=== PATIENT | female | born 1995 | race Asian ===

== ENCOUNTER 2019-10-30 15:41 | Emergency (ER) | payer OTHER ==
[~2019-10-30] VITALS: Ht 149.9 cm; Wt 61.4 kg
[2019-10-30] MEDS ORDERED: SING10TA32 PO (15:47)
[2019-10-30] MEDS ORDERED: ALBU8.5H IH (15:47)
[2019-10-30] MEDS ORDERED: ZYRTTAB8 PO (15:47)
[2019-10-30] MEDS ORDERED: PREN29TA4 PO (15:47)
[2019-10-30 16:40] LABS: BASO % 0.3 % (0.0-1.0); EOS # 0.3 10^3/uL (0.0-0.5); EOS % 2.5 % (0.0-3.0); HEMATOCRIT 42.5 % (36.0-47.0); HEMOGLOBIN 14.1 g/dl (12.0-15.5); LYMPH # 2.6 10^3/uL (1.5-5.0); LYMPH % 23.4 % (24.0-44.0); MEAN CORPUSCULAR HEMOGLOBIN 29.9 pg (27.0-33.0); MEAN CORPUSCULAR HGB CONC 33.2 g/dl (32.0-36.5); MONO # 0.8 10^3/uL (0.0-0.8); MONO % 6.7 % (0.0-5.0); NEUTROPHILS # 7.6 10^3/uL (1.5-8.5); NEUTROPHILS % 66.8 % (36.0-66.0); PLATELET COUNT, AUTOMATED 272 10^3/uL (150-450); RED BLOOD COUNT 4.72 10^6/uL (4.00-5.40); WHITE BLOOD COUNT 11.3 10^3/uL (4.0-10.0)
[2019-10-30 17:28] LABS: ALBUMIN 3.8 GM/DL (3.2-5.2); ALT/SGPT 19 U/L (12-78); BILIRUBIN,DIRECT 0.2 MG/DL (0.0-0.2); BILIRUBIN,TOTAL 0.4 MG/DL (0.2-1.0); BLOOD UREA NITROGEN 7 MG/DL (7-18); CALCIUM LEVEL 9.1 MG/DL (8.5-10.1); CARBON DIOXIDE LEVEL 25 MEQ/L (21-32); CHLORIDE LEVEL 104 MEQ/L (98-107); CREATININE FOR GFR 0.58 MG/DL (0.55-1.30); GLOMERULAR FILTRATION RATE > 60.0 (>60); GLUCOSE, FASTING 85 MG/DL (70-100); HCG, SERUM QUANTITATIVE 47484 MIU/ML; LIPASE 137 U/L (73-393); POTASSIUM SERUM 4.1 MEQ/L (3.5-5.1); SODIUM LEVEL 137 MEQ/L (136-145); TOTAL PROTEIN 7.7 GM/DL (6.4-8.2)
[2019-10-30] MEDS ORDERED: ONDANSETRON 4MG/2ML VIAL (J2405) IV ONE (18:15)
[2019-10-30] MEDS ORDERED: NS 1,000 ML IV ONE (18:15)
[2019-10-30 19:29] LABS: INFLUENZA A AMPLIFICATION NEGATIVE (NEGATIVE); INFLUENZA B AMPLIFICATION NEGATIVE (NEGATIVE)
[2019-10-30] MEDS ORDERED: METOCLOPRAMIDE INJ 10MG/2ML VIAL (J2765) IV ONE (20:30)
[2019-10-30] MEDS ORDERED: ONDA4TAB6 PO ×2 (21:19→21:34)
[2019-10-30 21:24] VITALS: BP 122/72
== END 2019-10-30 21:36 | disposition home or self-care (01) ==
LOC: M ED 15:41
DX: O21.9 Vomiting of pregnancy, unspecified (principal); Z3A.01 Less than 8 weeks gestation of pregnancy; Z79.51 Long term (current) use of inhaled steroids; Z79.899 Other long term (current) drug therapy
CPT/HCPCS: 80048; 80076; 81001; 83690; 84702; 85025; 87086; 87502; 96361; 96374; 99284; J2405

== ENCOUNTER 2020-02-14 03:25 | Outpatient (CLI) | payer OTHER ==
[2020-02-14] VITALS (8 sets, daily range): BP systolic 97–110; BP diastolic 57–71
[~2020-02-14] VITALS: Ht 149.9 cm; Wt 65.2 kg
[~2020-02-14 03:25] MED LIST: ALBU8.5H IH; ONDA4TAB6 PO; PREN29TA4 PO; SING10TA32 PO; ZYRTTAB8 PO
--- NOTE | 2020-02-14 05:30 | REPVR ---
PROCEDURE INFORMATION: Exam: US First Trimester, Transabdominal Exam date and time: 02/14/2020 5:02 AM Age: 24 years old Clinical indication: complicated by abdominal or pelvic pain; Other: Abd cramping; Gestational age or lmp: 21w 6d; ; Additional info: 22.2 abdominal pain TECHNIQUE: Imaging protocol: Real-time transabdominal obstetrical ultrasound of the maternal pelvis and a first trimester , less than 14 weeks 0 days, with image documentation. COMPARISON: No relevant prior studies available. FINDINGS: GESTATION: Gestation: There is a single live fetus. Heart rate: A heartbeat was detected with a rate of 149 bpm. Presentation: The lie is vertex. Placenta: There is no evidence of placenta previa. The placenta is anterior and fundal. Amniotic fluid: The amniotic fluid level is qualitatively within normal limits. Head, face, and neck: The choroid plexus and lateral ventricles appear normal. The midline structures of the brain are present. The cerebellum and posterior fossa appear unremarkable. Abdomen: The kidneys appear unremarkable. The bladder appears unremarkable. The stomach appears unremarkable. Umbilical cord and insertion: The abdominal cord insertion appears normal. There is a three-vessel cord. Spine: The spine appears normal. Extremities: There are 2 upper extremities and 2 lower extremities. BIOMETRY: Estimated gestational age: The estimated gestational age by ultrasound measurements is 21 weeks 6 days. Estimated due date: The estimated due date by ultrasound measurement is June 20, 2020. Estimated weight: The estimated weight is 420 g ( LMP percentile 10%.) Biparietal diameter: The biparietal diameter measures 5.32 cm, corresponding to a 22 week 2 day gestation. Head circumference: The head circumference measures 19.8 cm, corresponding to a 22 week 0 day gestation. Abdominal circumference: The abdominal circumference measures 15.3 cm, corresponding to a 20 week 4 day gestation. Femur length: The femur length measures 3.8 cm, corresponding to a 22 week 2 day gestation. Ratios: The HC/AC ratio is 1.29, just above normal limits. MATERNAL: Uterus: Unremarkable. Cervix: The cervix is closed and measures 4.9 cm in length. Right adnexa: Not assessed. Left adnexa: Not assessed. Intraperitoneal: No intraperitoneal free fluid. IMPRESSION: 1. Single, live intrauterine . 2. The estimated gestational age by ultrasound measurements is 21 weeks 6 days with an estimated due date of June 20, 2020, compared to an estimated age by dates of 22 weeks 2 days. 3. No evidence of retroplacental hemorrhage or placenta previa. Closed cervix. Electronically signed by: Marissa Brunner On 02/14/2020 05:29:35 AM
[2020-02-14 06:11] LABS: HEMATOCRIT 34.1 % (36.0-47.0); HEMOGLOBIN 11.1 g/dl (12.0-15.5); MEAN CORPUSCULAR HEMOGLOBIN 30.1 pg (27.0-33.0); MEAN CORPUSCULAR HGB CONC 32.6 g/dl (32.0-36.5); MEAN CORPUSCULAR VOLUME 92.4 fl (80.0-96.0); PLATELET COUNT, AUTOMATED 272 10^3/uL (150-450); RED BLOOD COUNT 3.69 10^6/uL (4.00-5.40)
--- NOTE | 2020-02-14 07:02 | HPE ---
DATE OF ADMISSION: 02/14/2020 24-year-old 1, para 0, last menstrual period (LMP) 09/11/2019, estimated date of confinement (EDC) 06/17/2020 at 22 and 4 weeks of gestation arrived in triage with abdominal pain times one episode. No vaginal bleeding or loss. Risk factor is she has asthma. Labs are B+, HIV negative, hepatitis negative, RPR negative, rubella immune. Varicella immune. Pap normal. Urine negative. Gonorrhea and chlamydia negative. On her CBC her hemoglobin 11.1, hematocrit 34.1, platelets are 272 and her white count 11.0. She is Rh positive B. The urine is 1.020, pH 6, 2+ leuks, trace protein, negative ketones, negative nitrates, trace blood. PHYSICAL EXAMINATION: On examination no distress. Symphysis fundus height is 20, nontender uterus, vertex OA. No evidence of bleeding or discharge. She had one spontaneous deceleration with good recovery. No contractions. No other decelerations were noted on the monitor. Ultrasound showed a live intrauterine , heart rate 149, vertex presenting. Negative previa anterior fundal placenta, ROSALIA is normal. Cervix 4.9. Estimated weight 420 grams. No evidence of abruption. Good active live fetus. Betke-Kleihauer is pending. In summary, we have a 22 week with acute abdominal pain resolved, active fetus. No distress. The patient was given instructions for discharge. Has a followup appointment with [facility] in the distant future. All questions were answered. 40-minute discussion.
== END 2020-02-14 06:33 | disposition home or self-care (01) ==
LOC: M LDO 03:25
PROVIDERS: ATTEND Obstetrics & Gynecology
DX: O26.892 Other specified pregnancy related conditions, second trimester (principal); O99.512 Diseases of the respiratory system complicating pregnancy, second trimester; R10.30 Lower abdominal pain, unspecified; J45.909 Unspecified asthma, uncomplicated; Z79.51 Long term (current) use of inhaled steroids; Z79.899 Other long term (current) drug therapy; Z3A.22 22 weeks gestation of pregnancy
CPT/HCPCS: 36415; 59025; 76811; 85027; 85460; 86850; 86900; 86901; G0378; G0463

== ENCOUNTER 2020-03-18 01:59 | Outpatient (CLI) | payer OTHER ==
[~2020-03-18] VITALS: Ht 149.9 cm; Wt 69.6 kg
[2020-03-18 02:16] VITALS: BP 111/55
[2020-03-18 02:48] LABS: AMORPHOUS SEDIMENT SMALL (NEGATIVE); APPEARANCE, URINE CLOUDY (CLEAR); BACTERIA, URINE AUTO NEGATIVE (NEGATIVE); BILIRUBIN, URINE AUTO NEGATIVE (NEGATIVE); BLOOD, URINE BLOOD NEGATIVE (NEGATIVE); CALCIUM OXALATE CRYSTALS LARGE; COLOR, URINE YELLOW (YELLOW); GLUCOSE, URINE (UA) AUTO NEGATIVE (NEGATIVE); KETONE, URINE AUTO NEGATIVE (NEGATIVE); LEUKOCYTE ESTERASE, URINE AUTO 3+ (NEGATIVE); MUCUS, URINE SMALL (NEGATIVE); NITRITE, URINE AUTO NEGATIVE (NEGATIVE); PROTEIN, URINE AUTO NEGATIVE (NEGATIVE); RBC, URINE AUTO 2 /HPF (0-3); SPECIFIC GRAVITY URINE AUTO 1.014 (1.002-1.035); SQUAMOUS EPITHELIAL CELL UR AU 14 /HPF (0-6); UROBILINOGEN, URINE AUTO 0.2 mg/dL (0.0-2.0); WBC, URINE AUTO 6 /HPF (0-3)
[2020-03-18] MEDS ORDERED: LR 1,000 ML IV ONE (03:00)
[2020-03-18] MEDS ORDERED: MAALOX 30 ML SUSP *UDC PO ONE (03:00)
[2020-03-18 03:56] VITALS: BP 122/68
--- NOTE | 2020-03-18 23:51 | HPE ---
DATE OF ADMISSION: 03/18/2020 A 24-year-old 1, last menstrual period (LMP) 09/11/2019, estimated date of confinement (EDC) 06/17/2020 at 27 weeks of gestation. She is seen for similar upper abdominal pain with acute onset at 22 and 4 weeks, presently at 27 weeks, today associated with some vomiting and the abdominal pain is above the fundus of the uterus. Risk factors is she has asthma and takes multiple meds for her asthma. Labs are B+, HIV negative, hepatitis negative, RPR negative, rubella immune. Varicella immune. Pap normal. Urine negative. Gonorrhea and chlamydia are negative. On examination, she does not appear distressed. Symphysis fundus height is 28, vertex presenting. Category one strip for 27 weeks. Urine is 1.014, pH of 7, 3+ leukocyte esterase, and negative bacteria. White cells are noted and calcium oxalate in large amounts. On examination of her upper abdomen, it is tympanic throughout. A gastric bubble is noted. Right upper quadrant is negative. Left upper quadrant is negative. It is localized to the transverse colon. PLAN: Plan is to hydrate the patient, give her some Mylanta for upper epigastric pain. Send the urine for culture and sensitivity (C and S) and discharge with instructions. Blood pressure is 111/55, respirations are 19, pulse 86 and temperature is 97.3. The patient expressed understanding of plan of care.
== END 2020-03-18 04:00 | disposition home or self-care (01) ==
LOC: M LDO 01:59
PROVIDERS: ATTEND Obstetrics & Gynecology
DX: O21.2 Late vomiting of pregnancy (principal); O26.892 Other specified pregnancy related conditions, second trimester; R10.30 Lower abdominal pain, unspecified; Z3A.27 27 weeks gestation of pregnancy
CPT/HCPCS: 81001; 87086; 96360; G0378; G0463

== ENCOUNTER 2020-06-15 00:10 | Inpatient (IN) | payer OTHER ==
[2020-06-15] MEDS ORDERED: PROMETHAZINE INJ 25 MG/ML VIAL (J2550) As Ordered ONE (01:51)
[2020-06-15] MEDS ORDERED: BUTORPHANOL 2 MG/ML INJ (J0595) ONE (01:51)
[2020-06-15] MEDS ORDERED: PROMETHAZINE INJ 25 MG/ML VIAL (J2550) ONE (01:51)
[2020-06-15] MEDS ORDERED: BUTORPHANOL 2 MG/ML INJ (J0595) As Ordered ONE (01:52)
[2020-06-15] MEDS ORDERED: BICITRA 30ML SOLN UDC ONE (08:23)
[2020-06-15] MEDS ORDERED: ceFAZolin 2 GM/D5W 50 ML IV BAG (J0690 PER 500MG) ONE (08:23)
[2020-06-15] MEDS ORDERED: BICITRA 30ML SOLN UDC As Ordered ONE (08:23)
[2020-06-15] MEDS ORDERED: ceFAZolin 2 GM/D5W 50 ML IV BAG (J0690 PER 500MG) As Ordered ONE (08:23)
[2020-06-15] MEDS ORDERED: fentaNYL 250 MCG/5 ML INJECTION (J3010) ONE (08:33)
[2020-06-15] MEDS ORDERED: OXYTOCIN INJ 10 UNITS/ML VIAL (J2590) ONE (08:33)
[2020-06-15] MEDS ORDERED: dexameTHASONE 4 MG/ML 1ML VIAL (J1100 PER 1MG) ONE (08:33)
[2020-06-15] MEDS ORDERED: ONDANSETRON 4MG/2ML VIAL ONE (08:33)
[2020-06-15] MEDS ORDERED: KETOROLAC 60MG 2ML VIAL ONE (08:33)
[2020-06-15] MEDS ORDERED: AZITHROMYCIN INJ 500MG VIAL (J0456 PER 500MG) ONE (09:06)
[2020-06-15] MEDS ORDERED: AZITHROMYCIN INJ 500MG VIAL (J0456 PER 500MG) As Ordered ONE (09:06)
[2020-06-15] MEDS ORDERED: ePHEDrine SULFATE 25 MG/5 ML(5MG/ML) SYRINGE ONE (09:21)
[2020-06-15] MEDS ORDERED: METOCLOPRAMIDE INJ 10MG/2ML VIAL (J2765 PER 1) ONE (09:38)
[2020-06-15] MEDS ORDERED: KETOROLAC 30 MG/ML 1ML VIAL As Ordered ONE ×2 (14:44→20:41)
[2020-06-15] MEDS ORDERED: KETOROLAC 30 MG/ML 1ML VIAL ONE ×2 (14:44→20:41)
[2020-06-15] MEDS ORDERED: PERCOCET 5MG/325MG TAB ONE (19:26)
[2020-06-15] MEDS ORDERED: PERCOCET 5MG/325MG TAB As Ordered ONE (19:26)
[2020-06-16] MEDS ORDERED: KETOROLAC 30 MG/ML 1ML VIAL As Ordered ONE (02:55)
[2020-06-16] MEDS ORDERED: KETOROLAC 30 MG/ML 1ML VIAL ONE (02:55)
[2020-06-16] MEDS ORDERED: PERCOCET 5MG/325MG TAB ONE ×2 (06:56→16:43)
[2020-06-16] MEDS ORDERED: PERCOCET 5MG/325MG TAB As Ordered ONE ×2 (06:56→16:43)
[2020-06-16] MEDS ORDERED: IBUPROFEN 800 MG TAB ONE ×2 (08:19→16:43)
[2020-06-16] MEDS ORDERED: IBUPROFEN 800 MG TAB As Ordered ONE ×2 (08:19→16:44)
[2020-06-16] MEDS ORDERED: MIRALAX *UNIT DOSE* 17GM PACKET ONE (22:02)
[2020-06-16] MEDS ORDERED: MIRALAX *UNIT DOSE* 17GM PACKET As Ordered ONE (22:02)
[2020-06-17] MEDS ORDERED: IBUPROFEN 800 MG TAB As Ordered ONE (00:11)
[2020-06-17] MEDS ORDERED: IBUPROFEN 800 MG TAB ONE (00:11)
[2020-06-17] MEDS ORDERED: PERCOCET 5MG/325MG TAB ONE (09:10)
[2020-08-05 09:35] LABS: HEMATOCRIT 39.4 % (36.0-47.0); HEMOGLOBIN 12.6 g/dl (12.0-15.5); MEAN CORPUSCULAR HEMOGLOBIN 27.1 pg (27.0-33.0); MEAN CORPUSCULAR VOLUME 84.7 fl (80.0-96.0); PLATELET COUNT, AUTOMATED 316 10^3/uL (150-450); RED BLOOD COUNT 4.65 10^6/uL (4.00-5.40)
[2020-08-08 01:01] LABS: HEMATOCRIT 28.1 % (36.0-47.0); HEMOGLOBIN 8.9 g/dl (12.0-15.5); MEAN CORPUSCULAR HEMOGLOBIN 27.5 pg (27.0-33.0); MEAN CORPUSCULAR HGB CONC 31.7 g/dl (32.0-36.5); MEAN CORPUSCULAR VOLUME 86.7 fl (80.0-96.0); PLATELET COUNT, AUTOMATED 247 10^3/uL (150-450); RED BLOOD COUNT 3.24 10^6/uL (4.00-5.40); WHITE BLOOD COUNT 16.1 10^3/uL (4.0-10.0)
--- NOTE | 2020-08-14 08:13 | IPN ---
DATE: 06/15/2010 This patient and requested circumcision of their male . After discussing risks and benefits of circumcision, the medical and nonmedical indications, the penile block, and aftercare, expressed understanding of penile cesar, aftercare, signed the consent form. All questions were answered. A 20- minute discussion. We await the clearance by the supervisor paper coating. DELMY
== END 2020-06-17 08:20 | disposition home or self-care (01) | DRG 773 ==
LOC: M LDI 00:10
PROVIDERS: ADMIT Obstetrics & Gynecology; ATTEND Obstetrics & Gynecology
PROC: 10D00Z1 Extraction of Products of Conception, Low, Open Approach (ICD-10-PCS; principal; 2020-06-15)
DX: O76 Abnormality in fetal heart rate and rhythm complicating labor and delivery (principal); Z37.0 Single live birth; Z3A.39 39 weeks gestation of pregnancy

== ENCOUNTER → 2021-10-12 | Outpatient (REF) | LOC: M LABSMTC 09:29 | PROVIDERS: ATTEND Pediatrics | DX: Z20.822 Contact with and (suspected) exposure to COVID-19 (principal) ==

== ENCOUNTER → 2021-11-02 | Outpatient (REF) | LOC: M LABSMTC 08:56 | PROVIDERS: ATTEND Pediatrics | DX: Z11.52 Encounter for screening for COVID-19 (principal) ==

== ENCOUNTER → 2021-11-28 | Outpatient (REF) | LOC: M LABSMTC 09:09 | PROVIDERS: ATTEND Pediatrics | DX: Z20.822 Contact with and (suspected) exposure to COVID-19 (principal) ==